=== PATIENT | female | born 1985 | race Caucasian/White ===

== ENCOUNTER 2017-05-16 20:11 | Emergency (ER) | payer OTHER ==
[~2017-05-16 20:11] MED LIST: AMOXICILLIN; AMOXIL500 MG PO; BIRTH CONTROL PILL; FLONASE 0.05% N16 G1; GLUCOPHAGE XR500 MG PO; IBUPROFEN; PRILOSEC; ZANTAC; ZYRTEC10 M1
== END 2017-05-17 00:03 | disposition home or self-care (01) ==
LOC: SED 20:11
DX: R51 Headache (principal); R11.10 Vomiting, unspecified; E28.2 Polycystic ovarian syndrome; Z88.5 Allergy status to narcotic agent; Z79.899 Other long term (current) drug therapy
CPT/HCPCS: 36415; 96361; 96374; 96375; 99284; J1100; J1200; J1885; J2765